=== PATIENT | female | born 1980 | race Caucasian/White ===

== ENCOUNTER 2023-04-27 15:24 | Emergency (ER) | payer OTHER ==
[~2023-04-27] VITALS: Ht 167.6 cm; Wt 89.4 kg
[2023-04-27 17:38] LABS: PH,URINE 5.5 (5.0-8.0); URINE APPEARANCE Clear; URINE BILIRRUBIN Negative (NEGATIVE); URINE BLOOD Large; URINE COLOR Yellow; URINE GLUCOSE Negative (NEGATIVE); URINE LEUKOCYTE Moderate; URINE NITRATE Negative; URINE PROTEIN Negative (NEGATIVE)
[2023-04-27 17:42] LABS: URINE BACTERIA 825.1 uL (0.0-1933); URINE RBC 2114.1 uL (0.0-20.8); URINE WBC 286.7 uL (0.0-23.2)
== END 2023-04-27 18:44 | disposition home or self-care (01) ==
LOC: ER 15:24
DX: N39.0 Urinary tract infection, site not specified (principal)
CPT/HCPCS: 96365; 99284; J0744